=== PATIENT | male | born 1995 | race Caucasian/White ===

== ENCOUNTER 2017-06-20 12:26 | Emergency (ER) | payer OTHER ==
[~2017-06-20] VITALS: Ht 182.9 cm; Wt 76.2 kg
[2017-06-20 12:40] VITALS: TEMP 36.9; Ht 182.9 cm; Wt 76.2 kg
[2017-06-20] MEDS ORDERED: SODIUM CHLORIDE 0.9% 1000ML 1,000 ML IV STA (13:15)
--- NOTE | 2017-06-20 13:32 | EMERGENCY ROOM VISIT NOTE ---
History Report prepared by Nitin: Juan Salvador Under the Supervision of: Dr. Miguelangel Parks M.D. First contact with patient: 12:43 Chief Complaint: ABDOMINAL PAIN Stated Complaint: STOMACH PAIN, BLACK VOMIT Nursing Triage Summary: pt vomited black sputum abd feels like kicked by horse repeatly.no diarrhea History of Present Illness The patient is a 21 year old white male with a past medical history of kidney issues and asthma who presents to the ED with a cc of constant abdominal pain beginning 6 hours ago. Currently rates the pain as a 7/10 in severity. He states that it feels like he is being kicked in the stomach. Positive vomiting black emesis, and he was urinating dark orange. Negative bruising, current nausea, or penile or scrotal pain and swelling. He states that has binge drank last night without eating any food and does not remember very much of the night , though he does not think he had any trauma. He denies any tobacco or drug use. Source of History: patient Onset: six hours ago Position: abdomen Symptom Intensity: 7/10 Quality: other (feels like getting kicked) Timing: constant Associated Symptoms: + vomiting Note: Associated symptoms: dark orange urine Review of Systems See HPI for pertinent positives and negatives. A total of ten systems were reviewed and were otherwise negative. Past Medical & Surgical Medical Problems: (1) Asthma (2) Horseshoe kidney (3) Kidney problem Social History Smoking Status: Never Smoker Marital Status: single Housing Status: lives with roommate Occupation Status: [employer] student Current/Historical Medications Scheduled Ciprofloxacin Hcl (Cipro), 1 TAB PO BID Scheduled PRN Tramadol (Ultram), 50 MG PO Q8H PRN for Pain Allergies Coded Allergies: No Known Allergies (Unverified , 06/20/17) Physical Exam Vital Signs Date Time Temp Pulse Resp B/P (MAP) Pulse Ox O2 Delivery O2 Flow Rate FiO2 06/20/17 16:30 58 18 129/67 98 Room Air 06/20/17 15:33 64 18 138/76 96 Room Air 06/20/17 14:45 63 16 148/87 97 06/20/17 13:32 71 06/20/17 12:40 36.9 81 18 154/77 97 Room Air Physical Exam GENERAL: Awake, alert, well-appearing, NAD HENT: Normocephalic, atraumatic. EYES: Normal conjunctiva. Sclera non-icteric. NECK: Supple. No nuchal rigidity. FROM. RESPIRATORY: CTAB, no rhonchi, wheezing, crackles CARDIAC: RRR, no MRG ABDOMEN: Periumbilical left sided TTP. Soft, ND, BS+ MSK: No chest wall TTP, no LE edema. No ecchymosis, crepitus, external signs of trauma, swelling, or hematoma over the chest, abdomen, back, or extremities. No CVA TTP NEURO: GCS 15, CN 2-12 intact, moves all 4s on command SKIN: No rash or jaundice noted. Medical Decision & Procedures ER Provider Diagnostic Interpretation: Radiology results as stated below per my review and radiologist interpretation: CHEST ONE VIEW PORTABLE CLINICAL HISTORY: Hemoptysis. Abdominal pain. COMPARISON STUDY: No previous studies for comparison. FINDINGS: The cardiac and mediastinal contours are normal. There is no evidence of focal pulmonary consolidation. There is no evidence of failure. No pleural effusions are visualized.[ No pneumothorax is visualized. IMPRESSION: No active disease in the chest. Electronically signed by: Randal Austin M.D. 06/20/2017 1:42 PM Dictated Date/Time: 06/20/2017 1:[address] SCAN OF THE ABDOMEN AND PELVIS WITH IV CONTRAST CLINICAL HISTORY: Left flank pain. Hematuria. COMPARISON STUDY: No priors. TECHNIQUE: Following the IV administration of 93 cc of Optiray 320, CT scan of the abdomen and pelvis is performed from the lung bases to the proximal femora. Images are reviewed in the axial, sagittal, and coronal planes. IV contrast was administered without complication. A dose lowering technique was utilized adhering to the principles of ALARA. The examination is significantly compromised by motion artifact. CT DOSE: 295.67 mGy.cm FINDINGS: Lung bases: The heart is normal in size and without pericardial effusion. Evaluation of the lung bases is degraded by motion artifact. The lung bases are grossly clear. Liver: The contrast-enhanced liver is normal in size, contour, and attenuation. There is no intrahepatic biliary ductal dilatation. The hepatic veins and portal veins are patent. There is a 1.7 x 3.6 cm ovoid subcapsular low-attenuation lesion in the posterior right lobe of the liver seen on image #84. Gallbladder: Unremarkable. Spleen: Normal in size and attenuation. Pancreas: Unremarkable. Adrenal glands: Unremarkable. Kidneys: There is a horseshoe kidney. The renal moieties are normal in size and without hydronephrosis. There is a cortical connection both inferior mesenteric artery. The kidneys enhance symmetrically. There is mild urothelial thickening with minimal stranding stranding suggested involving the left renal pelvis. The left ureter is not well visualized. Abdominal vasculature: The abdominal aorta is normal in course and caliber. Bowel: The small bowel and colon are normal in course and caliber. The appendix is well-visualized and normal. Peritoneum: There is no intraperitoneal free air or abdominal ascites. Lymphadenopathy: None. Pelvic viscera: The bladder, prostate, and seminal vesicles are normal as imaged. Skeletal structures: No lytic or blastic lesions are seen. IMPRESSION: 1. Significantly motion compromised examination. 2. A horseshoe kidney is incidentally noted. 3. Mild urothelial thickening with faint surrounding stranding is suggested involving the left renal collecting system. This could represent the sequelae of a recently passed kidney stone or possibly infection. Correlation with clinical findings and urinalysis will be required. 4. There is a 3.6 cm ovoid low-attenuation subcapsular lesion in the right lobe of the liver. This is of indeterminant etiology and significance. Follow-up with a nonemergent MRI of the liver is recommended for definitive characterization. Electronically signed by: Jose Roland M.D. 06/20/2017 4:28 PM Dictated Date/Time: 06/20/2017 4:19 PM Laboratory Results 06/20/17 13:15 Red Blood Count 5.46, Mean Corpuscular Volume 84.6, Mean Corpuscular Hemoglobin 29.9, Mean Corpuscular Hemoglobin Concent 35.3, Mean Platelet Volume 9.5, Neutrophils (%) (Auto) 80.5, Lymphocytes (%) (Auto) 13.4, Monocytes (%) (Auto) 5.7, Eosinophils (%) (Auto) 0.0, Basophils (%) (Auto) 0.2, Neutrophils # (Auto) 8.62, Lymphocytes # (Auto) 1.44, Monocytes # (Auto) 0.61, Eosinophils # (Auto) 0.00, Basophils # (Auto) 0.02 06/20/17 13:15 Test 06/20/17 13:15 06/20/17 14:35 White Blood Count 10.71 K/uL (4.8-10.8) Red Blood Count 5.46 M/uL (4.7-6.1) Hemoglobin 16.3 g/dL (14.0-18.0) Hematocrit 46.2 % (42-52) Mean Corpuscular Volume 84.6 fL (80-100) Mean Corpuscular Hemoglobin 29.9 pg (25-34) Mean Corpuscular Hemoglobin Concent 35.3 g/dl (32-36) Platelet Count 271 K/uL (130-400) Mean Platelet Volume 9.5 fL (7.4-10.4) Neutrophils (%) (Auto) 80.5 % Lymphocytes (%) (Auto) 13.4 % Monocytes (%) (Auto) 5.7 % Eosinophils (%) (Auto) 0.0 % Basophils (%) (Auto) 0.2 % Neutrophils # (Auto) 8.62 K/uL (1.4-6.5) Lymphocytes # (Auto) 1.44 K/uL (1.2-3.4) Monocytes # (Auto) 0.61 K/uL (0.11-0.59) Eosinophils # (Auto) 0.00 K/uL (0-0.5) Basophils # (Auto) 0.02 K/uL (0-0.2) RDW Standard Deviation 40.7 fL (36.4-46.3) RDW Coefficient of Variation 13.3 % (11.5-14.5) Immature Granulocyte % (Auto) 0.2 % Immature Granulocyte # (Auto) 0.02 K/uL (0.00-0.02) Prothrombin Time 11.2 SECONDS (9.0-12.0) Prothromb Time International Ratio 1.0 (0.9-1.1) Activated Partial Thromboplast Time 28.2 SECONDS (21.0-31.0) Partial Thromboplastin Ratio 1.1 Anion Gap 9.0 mmol/L (3-11) Est Creatinine Clear Calc Drug Dose 175.4 ml/min Estimated GFR () > 150.0 Estimated GFR (Non- 134.5 BUN/Creatinine Ratio 8.3 (10-20) Calcium Level 9.4 mg/dl (8.5-10.1) Total Bilirubin 0.8 mg/dl (0.2-1) Direct Bilirubin 0.2 mg/dl (0-0.2) Aspartate Amino Transf (AST/SGOT) 35 U/L (15-37) Alanine Aminotransferase (ALT/SGPT) 30 U/L (12-78) Alkaline Phosphatase 105 U/L (45-117) Total Protein 8.4 gm/dl (6.4-8.2) Albumin 4.5 gm/dl (3.4-5.0) Lipase 132 U/L (73-393) Urine Color YELLOW Urine Appearance CLEAR (CLEAR) Urine pH >= 9.0 (4.5-7.5) Urine Specific [place] 1.017 (1.000-1.030) Urine Protein 2+ (NEG) Urine Glucose (UA) NEG (NEG) Urine Ketones TRACE (NEG) Urine Occult Blood 3+ (NEG) Urine Nitrite NEG (NEG) Urine Bilirubin NEG (NEG) Urine Urobilinogen NEG (NEG) Urine Leukocyte Esterase TRACE (NEG) Urine WBC (Auto) 10-30 /hpf (0-5) Urine RBC (Auto) >30 /hpf (0-4) Urine Hyaline Casts (Auto) 0 /lpf (0-5) Urine Epithelial Cells (Auto) 5-10 /lpf (0-5) Urine Bacteria (Auto) NEG (NEG) Laboratory results reviewed by me Medications Administered Medications (Trade) Dose Ordered Sig/[place] Route Start Time Stop Time Status Last Admin Dose Admin Sodium Chloride 1,000 ml @ 999 mls/hr Q1H1M STAT IV 06/20/17 13:15 06/20/17 14:15 DC 06/20/17 13:34 999 MLS/HR Morphine Sulfate (MoRPHine SULFATE INJ) 4 mg NOW STAT IV 06/20/17 14:26 06/20/17 14:28 DC 06/20/17 15:00 4 MG Ondansetron HCl (Zofran Inj) 4 mg NOW STAT IV 06/20/17 14:26 06/20/17 14:28 DC 06/20/17 15:00 4 MG Ceftriaxone Sodium (Rocephin Inj) 1 gm NOW STAT IV 06/20/17 16:41 06/20/17 16:48 DC 06/20/17 15:10 1 GM Azithromycin (Zithromax Tab) 1,000 mg NOW ONCE PO 06/20/17 17:45 06/20/17 17:46 DC 06/20/17 17:51 1,000 MG Ciprofloxacin (Cipro Tab) 500 mg NOW STAT PO 06/20/17 17:34 06/20/17 17:36 DC 06/20/17 17:51 500 MG ECG Indication: abdominal pain, vomiting Rate (beats per minute): 74 Rhythm: normal sinus Findings: no ectopy, other (Normal intervals. No STS changes or TWI) ED Course 1310: The patient was evaluated in room A12. A complete history and physical exam was performed. 1425: Beside FAST US was negative 1552: I reevaluated the patient, and he states that he is feeling better. 1701: I reassessed the patient, and he states that he has had a recent change in sexual partners and unprotected sex. Medical Decision The patient is a 21 year old white male with a past medical history of kidney issues and asthma who presents to the ED with a cc of constant abdominal pain beginning 6 hours ago. Currently rates the pain as a 7/10 in severity. He states that it feels like he is being kicked in the stomach. Positive vomiting black emesis, and he was urinating dark orange. Negative bruising, current nausea, or penile or scrotal pain and swelling. He states that has binge drank last night without eating any food and does not remember very much of the night , though he does not think he had any trauma. He denies any tobacco or drug use. Triage Nursing notes reviewed. The patient's presentation and history were concerning for etiologies such as appendicitis, diverticulitis, PUD, biliary pathology, UTI, pancreatitis, obstruction, mesenteric ischemia, aortic pathology, infections, inflammatory bowel disease, renal colic, as well as others were entertained. Patient was seen and evaluated the bedside. Patient did give a complaint of some left-sided abdominal flank pain. 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 Was concerned that the patient could've suffered a possible traumatic event however there is no there are no signs of external trauma given the uncertainty of all that occurred last evening combined with drinking alcohol. Patient did have blood work that was completed which is fairly unremarkable. Patient did have a fair amount of blood in his urine. Upon further questioning patient did state that he had a horseshoe kidney. Given complaints w/ hematuria and congenital anomaly, CT scan ordered and completed. Pain improved. CT ?recent passing of stone vs pyelo/infection. Upon further hx patient admitted to recent unprotected sexual intercourse and was tested for gonorrhea yesterday for dysuria. Patient given rocephin, azithro, and cipro. Cipro for possible UTI in setting of stone vs STI. Patient improved. AFVSS, safe for outpatient trx. Patient was given strict follow-up, discharge, and return precautions and was discharged home. Impression Primary Impression: STI (sexually transmitted infection) Additional Impression: Pyelonephritis Scribe Attestation The scribe's documentation has been prepared under my direction and personally reviewed by me in its entirety. I confirm that the note above accurately reflects all work, treatment, procedures, and medical decision making performed by me. Departure Information Dispostion Home / Self-Care Prescriptions Ciprofloxacin Hcl (CIPRO) 500 Mg Tab 1 TAB PO BID for 7 Days, #14 TAB Prov: Miguelangel Parks M.D. 06/20/17 Tramadol (Ultram) 50 Mg Tab 50 MG PO Q8H Y for Pain, #9 TAB Prov: Miguelangel Parks M.D. 06/20/17 Referrals No Doctor, Assigned (PCP) Patient Instructions ED STD Male Treated, ED UTI Cystitis Male, [facility] Additional Instructions Please return to the emergency department if you have worsening or recurrent symptoms not amenable to at-home treatment. Please call for a follow-up appointment with her primary care physician. Please take your medications as prescribed. If you have other concerns and/or complaints please feel free to also call your primary care physician's office or return the ED for further evaluation, management, and treatment. You received narcotic or benzodiazepene medication while in the emergency room today. This is an addictive medication that may cause drowziness as well as constipation. Do not drive, operate heavy machinery, or drink alcohol under the influence of this medication. You may take 600 mg Ibuprofen every 6 hours as needed for pain with food for no more than 2 consecutive days. You may take tylenol 1000mg every 6 hours as needed for pain. You may take motrin and tylenol separately or at the same time. Take tramadol for breakthrough pain. Please practice safe sexual practices. Also consider abstaining from alcohol. You have been examined and treated today on an emergency basis only. This is not a substitute for, or an effort to provide, complete comprehensive medical care. It is impossible to recognize and treat all injuries or illnesses in a single emergency department visit. It is therefore important that you follow up closely with [facility]. Call as soon as possible for an appointment. Thank you for your time and consideration. I look forward to speaking with you again soon. Please don't hesitate to call us if you have any questions. Problem Qualifiers
[2017-06-20 13:34] LABS: BASO % 0.2 %; BASO ABS # 0.02 K/uL (0-0.2); COMPLETE YES; HEMATOCRIT 46.2 % (42-52); IG% 0.2 %; LYMPH % 13.4 %; LYMPH ABS # 1.44 K/uL (1.2-3.4); MEAN CELL VOLUME 84.6 fL (80-100); MEAN CORPUSCULAR HEMOGLOBIN 29.9 pg (25-34); MEAN CORPUSCULAR HGB CONC 35.3 g/dl (32-36); MEAN PLATELET VOLUME 9.5 fL (7.4-10.4); MONO % 5.7 %; NEUT % 80.5 %; PLATELET COUNT 271 K/uL (130-400); RED BLOOD COUNT 5.46 M/uL (4.7-6.1); WHITE BLOOD COUNT 10.71 K/uL (4.8-10.8)
--- NOTE | 2017-06-20 13:43 | DIAGNOSTIC IMAGING REPORT ---
CHEST ONE VIEW PORTABLE CLINICAL HISTORY: Hemoptysis. Abdominal pain. COMPARISON STUDY: No previous studies for comparison. FINDINGS: The cardiac and mediastinal contours are normal. There is no evidence of focal pulmonary consolidation. There is no evidence of failure. No pleural effusions are visualized.[ No pneumothorax is visualized. IMPRESSION: No active disease in the chest. Electronically signed by: Randal Austin M.D. 06/20/2017 1:42 PM Dictated Date/Time: 06/20/2017 1:42 PM
[2017-06-20 13:46] LABS: PARTIAL THROMBOPLASTIN RATIO 1.1; PROTHROMBIN TIME (PATIENT) 11.2 SECONDS (9.0-12.0)
[2017-06-20 13:52] LABS: ALT/SGPT 30 U/L (12-78); AST/SGOT 35 U/L (15-37); BLOOD UREA NITROGEN 6 mg/dl (7-18); BUN/CREATININE RATIO 8.3 (10-20); CALCIUM 9.4 mg/dl (8.5-10.1); CARBON DIOXIDE 27 mmol/L (21-32); CHLORIDE 103 mmol/L (98-107); CREATININE 0.73 mg/dl (0.60-1.40); GLUCOSE 85 mg/dl (70-99); POTASSIUM 3.7 mmol/L (3.5-5.1); SODIUM 139 mmol/L (136-145)
[2017-06-20 13:55] LABS: ALKALINE PHOSPHATASE 105 U/L (45-117)
[2017-06-20] MEDS ORDERED: MoRPHine SULFATE 4 MG/ML 1 ML CARP\\VIAL IV STA (14:26)
[2017-06-20] MEDS ORDERED: ONDANSETRON INJ 2 MG/ML 2 ML VIAL IV STA (14:26)
[2017-06-20 14:57] LABS: URINE APPEARANCE CLEAR (CLEAR); URINE BILIRUBIN NEG (NEG); URINE COLOR YELLOW; URINE NITRITE NEG (NEG); URINE PH >= 9.0 (4.5-7.5); URINE SPECIFIC GRAVITY 1.017 (1.000-1.030); UROBILINOGEN NEG (NEG); ZZUR CULT IF INDIC CLEAN CATCH YES
[2017-06-20 15:07] LABS: MANUAL MICROSCOPIC REQUIRED? NO; REVIEW REQ? NO; SULFASALICYLIC ACID POS (NEG)
[2017-06-20] MEDS ORDERED: OPTIRAY 320 IV PRN (15:45)
--- NOTE | 2017-06-20 16:29 | DIAGNOSTIC IMAGING REPORT ---
CT SCAN OF THE ABDOMEN AND PELVIS WITH IV CONTRAST CLINICAL HISTORY: Left flank pain. Hematuria. COMPARISON STUDY: No priors. TECHNIQUE: Following the IV administration of 93 cc of Optiray 320, CT scan of the abdomen and pelvis is performed from the lung bases to the proximal femora. Images are reviewed in the axial, sagittal, and coronal planes. IV contrast was administered without complication. A dose lowering technique was utilized adhering to the principles of ALARA. The examination is significantly compromised by motion artifact. CT DOSE: 295.67 mGy.cm FINDINGS: Lung bases: The heart is normal in size and without pericardial effusion. Evaluation of the lung bases is degraded by motion artifact. The lung bases are grossly clear. Liver: The contrast-enhanced liver is normal in size, contour, and attenuation. There is no intrahepatic biliary ductal dilatation. The hepatic veins and portal veins are patent. There is a 1.7 x 3.6 cm ovoid subcapsular low-attenuation lesion in the posterior right lobe of the liver seen on image #84. Gallbladder: Unremarkable. Spleen: Normal in size and attenuation. Pancreas: Unremarkable. Adrenal glands: Unremarkable. Kidneys: There is a horseshoe kidney. The renal moieties are normal in size and without hydronephrosis. There is a cortical connection both inferior mesenteric artery. The kidneys enhance symmetrically. There is mild urothelial thickening with minimal stranding stranding suggested involving the left renal pelvis. The left ureter is not well visualized. Abdominal vasculature: The abdominal aorta is normal in course and caliber. Bowel: The small bowel and colon are normal in course and caliber. The appendix is well-visualized and normal. Peritoneum: There is no intraperitoneal free air or abdominal ascites. Lymphadenopathy: None. Pelvic viscera: The bladder, prostate, and seminal vesicles are normal as imaged. Skeletal structures: No lytic or blastic lesions are seen. IMPRESSION: 1. Significantly motion compromised examination. 2. A horseshoe kidney is incidentally noted. 3. Mild urothelial thickening with faint surrounding stranding is suggested involving the left renal collecting system. This could represent the sequelae of a recently passed kidney stone or possibly infection. Correlation with clinical findings and urinalysis will be required. 4. There is a 3.6 cm ovoid low-attenuation subcapsular lesion in the right lobe of the liver. This is of indeterminant etiology and significance. Follow-up with a nonemergent MRI of the liver is recommended for definitive characterization. Electronically signed by: Jose Roland M.D. 06/20/2017 4:28 PM Dictated Date/Time: 06/20/2017 4:19 PM
[2017-06-20] MEDS ORDERED: CEFTRIAXONE SOD INJ 1 GM ADDVIAL IV STA (16:41)
[2017-06-20] MEDS ORDERED: CIPROFLOXACIN 500 MG TAB PO STA (17:34)
[2017-06-20] MEDS ORDERED: AZITHROMYCIN 250 MG TAB PO ONE (17:45)
[2017-06-20] MEDS ORDERED: TRAM-10 PO (17:56)
[2017-06-20] MEDS ORDERED: CIPR-255 PO (17:56)
[2017-06-20 18:07] VITALS: BP 127/82; PULSE 59; O2SAT 99
== END 2017-06-20 18:08 | disposition home or self-care (01) ==
LOC: C.EDB 12:28 → C.EDA 18:08
DX: N12 Tubulo-interstitial nephritis, not specified as acute or chronic (principal); A64 Unspecified sexually transmitted disease; Q63.1 Lobulated, fused and horseshoe kidney; K76.9 Liver disease, unspecified; R04.2 Hemoptysis; R10.9 Unspecified abdominal pain; R11.10 Vomiting, unspecified